=== PATIENT | male | born 1990 | race Caucasian/White ===

== ENCOUNTER 2021-04-20 23:27 | Inpatient (IN) ==
[2021-04-21 03:22] LABS: Influenza A PCR Negative (Negative); Influenza B PCR Negative (Negative); Resp. Syncytial Virus PCR Negative (Negative)
[2021-04-21 03:24] LABS: SARS-CoV-2 by PCR (In House) Negative (Negative)
[2021-04-21] MEDS ORDERED: hydrOXYzine pamoate 25 MG CAPSULE PO PRN (03:51)
[2021-04-21] MEDS ORDERED: Acetaminophen 325 MG TABLET PO PRN (03:51)
[2021-04-21] MEDS ORDERED: *HR* LORazepam 1 MG TABLET PO PRN (03:51)
[2021-04-21] MEDS ORDERED: haloperidoL 5 MG TABLET PO PRN (03:51)
[2021-04-21] MEDS ORDERED: *HR* LORazepam 2 MG/ML VIAL IM PRN (03:51)
[2021-04-21] MEDS ORDERED: Haloperidol Lactate 5 MG/ML VIAL IM PRN (03:51)
[2021-04-21] MEDS ORDERED: Mag Hydrox/Al Hydrox/Simeth 30 ML UDC PO PRN (08:07)
[2021-04-21] MEDS ORDERED: MOM Conc 10 ML UD.LIQ PO PRN (08:07)
[2021-04-21] MEDS: traZODone 50 MG TABLET PO PRN (22:30)
[2021-04-22] MEDS: traZODone 50 MG TABLET PO PRN (20:52)
[2021-04-23] MEDS ORDERED: ARIPiprazole 5 MG TABLET PO SCH (21:00)
[2021-04-24 09:54] VITALS: BP 142/80; PULSE 70; TEMP 97.3; O2SAT 99
== END 2021-04-24 13:20 | disposition home or self-care (01) | DRG 751 ==
LOC: EMEROOARM 23:27 → 1ANU 04-21 03:48
PROVIDERS: ADMIT Psychiatry & Neurology Psychiatry; ATTEND Psychiatry & Neurology Psychiatry